=== PATIENT | female | born 1935 | race Caucasian/White ===

== ENCOUNTER 2018-06-20 14:58 | Observation (INO) ==
--- NOTE | 2018-06-20 15:13 | Emergency Department Note ---
Disposition Clinical Impression: Acute exacerbation of CHF (congestive heart failure), Pneumonia, Chest pain Disposition: Admitted As Inpatient Condition: Fair Time of Disposition: 18:10 Chest Pain HPI - General Chief Complaint: ED Chest Pain Stated Complaint: pain with inspiration Time Seen by Provider: 06/20/18 15:00 Source: patient, EMS Mode of arrival: EMS Limitations: no limitations Vital Signs Reviewed: Yes Nursing Notes Reviewed: Yes - History of Present Illness HPI Narrative: 83-year-old female presents today stating that she has had substernal chest pain that radiates to the left. She states the going on for a few hours. She states that she was short of breath before this happened she put her oxygen back on. She wears 2 L at 90 all the time and 2 L during the day most of the time. She states that she was short of breath began after having oxygen did help. Her pain was improved on the ambulance with aspirin and nitroglycerin. She states her pain is about 70% of what it was to start. She states that she had some nausea and no diarrhea no vomiting or headache neck pain or shoulder pain. She states she is not sweaty with this. She states 2 months ago she had the TAVR procedure done at [facility], which was successful, and a watchman which failed. SHe had a clean cath prior to that. - Related Data Home Medications Medication Instructions Recorded Confirmed Furosemide [Lasix] 20 mg PO DAILY 12/16/16 06/20/18 Metoprolol [Lopressor] 50 mg PO BID 12/16/16 06/20/18 Oxygen 2 l NS HS 12/16/16 06/20/18 Potassium Chloride [K-Tab ER] 20 meq PO DAILY 12/16/16 06/20/18 amLODIPine [Norvasc] 5 mg PO BID 12/16/16 06/20/18 Biotin 500 mg PO DAILY 01/08/18 06/20/18 Cyanocobalamin (B-12) [Vitamin B12] 1,000 mcg IM QMONTH 01/08/18 06/20/18 Cholecalciferol (D-3) [Vitamin D] 5,000 unit PO DAILY 01/25/18 06/20/18 Warfarin [Coumadin] 5 mg PO 2XW 03/25/18 06/20/18 Aspirin [Adult Aspirin] 81 mg PO DAILY 09/23/18 09/23/18 Doxazosin [Cardura] 4 mg PO HS 06/20/18 06/20/18 Warfarin [Coumadin] 2.5 mg PO 3XW 06/20/18 06/20/18 Allergies Allergy/AdvReac Type Severity Reaction Status Date / Time dabigatran etexilate Allergy Itching Verified 03/25/18 11:16 [From Pradaxa] morphine Allergy Itching Verified 03/25/18 11:16 Penicillins [PCN] Allergy Itching Verified 03/25/18 11:16 Sulfa (Sulfonamide Allergy Itching Verified 03/25/18 11:16 Antibiotics) fentanyl AdvReac See Verified 03/25/18 11:16 Comments midazolam [From Versed] AdvReac See Verified 03/25/18 11:16 Comments Review of Systems: All other systems are negative except as noted/marked Chart generated with voice recognition software Nursing notes reviewed Old records reviewed Chest Pain PMH - Past Medical History Medical history: Reports: arthritis, atrial fibrillation, diabetes, hyperlipidemia, hypertension, myocardial infarction Surgical history: Reports: appendectomy, , hysterectomy, knee replacement, orthopedic, other Psychiatric history: Reports: no psych history - Social History Smoking Status: Never smoker Alcohol use: Reports: none Drug use: Reports: none Physical Exam General: NAD, VSS Head: normocephalic, atraumatic Eyes: EOMI, PERRLA mouth: moist mucous membranes Neck: NO CLA, Supple Chest wall: normal rise, no crepitus, no deformity noted Lungs: moving air well, no distress Heart: RRR, no murmur Abd: soft, nontender, BS normal : deferred MSK: strength equal in all four extremities Ext: moves all four extremities, no obvious deformities Skin: cap refill normal, warm, dry neuro : CN2-12 grossly intact, A&Ox3 Psych: normal affect, not anxious Course Vital Signs Temperature 98.2 F 06/20/18 15:01 Pulse Rate 74 06/20/18 15:01 Respiratory Rate 18 06/20/18 15:01 Blood Pressure 141/58 06/20/18 15:01 O2 Sat by Pulse Oximetry 93 06/20/18 15:01 Temperature 98.2 F 06/20/18 15:01 Pulse Rate 75 06/20/18 17:46 Respiratory Rate 18 06/20/18 17:46 Blood Pressure 131/80 06/20/18 17:46 O2 Sat by Pulse Oximetry 96 06/20/18 17:46 Oxygen Delivery Oxygen Delivery Nasal Cannula Chest Pain - [facility] Narrative Medical decision making narrative: Spoke with Patient's transport conductor at [facility] [place], agrees likely not cardiac, feels patient could be monitored here for chf/pna and could always be transferred if not improving. 83-year-old female who presents today with left-sided and substernal chest pain. States that couple months ago she had some cardiac procedures done. She was concerned that she might be having heart problems secondary to those. Her legs have been swollen according to her on reexamination they do not appear swollen at this time however she states it was swollen at home. She denies any fevers is not having any cough she is now brought anything up. She does not feel nauseated. She states she just feels that she has this worsening chest pain. Her chest pain did improve with some nitroglycerin we did placed some paste on her. She will completely resolved chest pain but states that it hurt more with breathing than anything. Patient was feeling much better. I did call up to [facility] talk to a transport conductor who did not feel this is cardiac as she just had a normal catheter just prior to her cardiac procedures. We discussed keeping her here to rule out CHF versus pneumonia and started her on antibiotics for the pneumonia and some extra Lasix for her CHF. Dr Menon accepted patient for admission. Orders placed. Patient was doing well but then had increasing chest pain. Given her recent cardiac procedures I did want to completely rule out dissection and sent her over for a CT a. Her blood pressure has been normal. Has been normal during this time. Patient is allergic to opiates we discussed what works versus typically Tylenol helps and she would like to try some of that. Currently awaiting CTA results before sending patient for admission. Patient cta negative for dissection/aneurysm. Passed along to set staff fitter abnl ct results. Pt comfortable and improved pain with tylenol, additional nitro, and transferred to be admitted - Medical Records Medical records reviewed: Yes I reviewed the patient's medical records. - Lab Data Lab results reviewed: Yes I reviewed the patient's lab results. Result diagrams: 06/20/18 15:25 06/20/18 15:25 Lab Results 06/20/18 06/20/18 06/20/18 Range/Units 15:25 15:25 15:25 WBC 11.2 H (4.3-11.1) K/mcL RBC 3.38 L (3.82-4.97) M/mcL Hgb 10.2 L (11.5-15.4) g/dL Hct 33.4 L (35.3-44.9) % MCV 98.8 (83.0-100.0) fL MCH 30.2 (28.0-33.3) pg MCHC 30.5 L (31.6-35.5) g/dL RDW 14.6 H (11.5-14.5) % Plt Count 306 (140-400) K/mcL MPV 9.6 (9.4-12.4) fL Immature Gran % 0.4 (0-4) % Seg Neutrophils % 80.4 % Lymphocytes % 10.8 % Monocytes % 7.3 % Eosinophils % 0.8 % Basophils % 0.3 % Neutrophils # 9.0 H (1.6-8.9) K/mcL Lymphocytes # 1.2 (0.6-4.6) K/mcL Monocytes # 0.8 (0.0-1.3) K/mcL Eosinophils # 0.1 (0.0-0.6) K/mcL Basophils # 0.0 (0.0-0.2) K/mcL PT 24.3 H (9.4-12.1) Seconds INR 2.2 APTT 41.4 H (26.0-36.0) Seconds Sodium 141 (136-145) mEq/L Potassium 4.8 (3.5-5.1) mEq/L Chloride 102 (98-107) mEq/L Carbon Dioxide 31 H (23-29) mEq/L BUN 21 (8-23) mg/dL Creatinine 1.07 (0.60-1.20) mg/dL Est GFR ( Amer) 60 (> 60) Est GFR (Non-Af Amer) 49 L (> 60) BUN/Creatinine Ratio 20 (6-26) Glucose 165 H (70-105) mg/dL Calculated Osmolality 299 (280-300) Calcium 9.7 (8.6-10.3) mg/dL Magnesium (1.6-2.6) mg/dL Troponin I < 0.03 (< 0.04) ng/mL B-Natriuretic Peptide (Less than 100) pg/mL 06/20/18 06/20/18 Range/Units 15:25 15:25 WBC (4.3-11.1) K/mcL RBC (3.82-4.97) M/mcL Hgb (11.5-15.4) g/dL Hct (35.3-44.9) % MCV (83.0-100.0) fL MCH (28.0-33.3) pg MCHC (31.6-35.5) g/dL RDW (11.5-14.5) % Plt Count (140-400) K/mcL MPV (9.4-12.4) fL Immature Gran % (0-4) % Seg Neutrophils % % Lymphocytes % % Monocytes % % Eosinophils % % Basophils % % Neutrophils # (1.6-8.9) K/mcL Lymphocytes # (0.6-4.6) K/mcL Monocytes # (0.0-1.3) K/mcL Eosinophils # (0.0-0.6) K/mcL Basophils # (0.0-0.2) K/mcL PT (9.4-12.1) Seconds INR APTT (26.0-36.0) Seconds Sodium (136-145) mEq/L Potassium (3.5-5.1) mEq/L Chloride (98-107) mEq/L Carbon Dioxide (23-29) mEq/L BUN (8-23) mg/dL Creatinine (0.60-1.20) mg/dL Est GFR ( Amer) (> 60) Est GFR (Non-Af Amer) (> 60) BUN/Creatinine Ratio (6-26) Glucose (70-105) mg/dL Calculated Osmolality (280-300) Calcium (8.6-10.3) mg/dL Magnesium 1.9 (1.6-2.6) mg/dL Troponin I (< 0.04) ng/mL B-Natriuretic Peptide 471 H (Less than 100) pg/mL - Radiology Data Radiology results reviewed: Yes I reviewed the patient's radiology results. XAMINATION: SINGLE XRAY VIEW OF THE CHEST 06/20/2018 3:34 pm COMPARISON: None. HISTORY: ORDERING SYSTEM PROVIDED HISTORY: chest pain Acute chest pain FINDINGS: The heart is enlarged. Evidence of aortic valve surgery. Mild pulmonary vascular congestion centrally. Small left pleural effusion. Airspace changes in the left lower lung zone. No skeletal findings. XR/XR chest 1V portable IMPRESSION: CHF and suspected asymmetric pulmonary edema in the left lower chest. D/ / Alexandre Dupont MD / Alexandre Dupont MD Interpreting Provider: Alexandre Dupont MD INATION: CTA OF THE CHEST; CTA OF THE ABDOMEN AND PELVIS WITH CONTRAST 06/20/2018 5:26 pm; 06/20/2018 5:22 pm: TECHNIQUE: CTA of the chest was performed after the administration of intravenous contrast. Multiplanar reformatted images are provided for review. MIP images are provided for review. Dose modulation, iterative reconstruction, and/or weight based adjustment of the mA/kV was utilized to reduce the radiation dose to as low as reasonably achievable.; CTA of the abdomen and pelvis was performed with the administration of intravenous contrast. Multiplanar reformatted images are provided for review. MIP images are provided for review. Dose modulation, iterative reconstruction, and/or weight based adjustment of the mA/kV was utilized to reduce the radiation dose to as low as reasonably achievable. COMPARISON: None. HISTORY: ORDERING SYSTEM PROVIDED HISTORY: chest pain 70 ml of ISOVYE 370 ; ORDERING SYSTEM PROVIDED HISTORY: pain r/o dissection 70 ml of ISOVYE 370 FINDINGS: CTA CHEST: A stent is present within the ascending thoracic aorta. No dissection of the ascending thoracic aorta or the aortic arch is identified. However evaluation of the remaining segments of the aorta are limited due to poor contrast enhancement. There are extensive vascular calcifications. There is mild cardiomegaly. There is partial atelectasis of the left lower lobe with a trace left pleural effusion. CTA ABDOMEN: Calcified granulomas are present within the spleen. The liver, gallbladder, and pancreas are grossly within normal limits. A 3 cm duodenal diverticulum is present. No adrenal masses are identified. There is a horseshoe kidney with an indeterminate hypoattenuating lesion within the right kidney measuring 2.4 cm in diameter. There is diverticulosis coli without evidence of diverticulitis. There is no small bowel obstruction or free air or free fluid. The appendix is not identified. There is no retroperitoneal bleed. No pathologically enlarged lymph nodes are detected. There is skin thickening with subcutaneous stranding of fat and edema along the anterior abdominal wall possibly reflecting cellulitis. There are degenerative changes of the spine. CTA PELVIS: As above. CT/CT angio abdomen pelvis IMPRESSION: Inconclusive evaluation for dissection due to poor contrast enhancement. No aneurysm identified. Partial atelectasis of the left lower lobe with a trace left pleural effusion. Probable cellulitis along the low anterior abdominal wall. Indeterminate hypoattenuating lesion within the horseshoe kidney, probably a cyst. Diverticulosis coli without evidence of diverticulitis. D/ / Khoi Price MD / Khoi Price MD Interpreting Provider: Khoi Price MD - EKG Data EKG attestation: Yes I reviewed and interpreted this EKG. EKG results narrative: EKG interpreted by myself as an A. fib rate of 81 QTC of [address] elevation Heart Score - Score History: Moderately Suspicious EKG: Normal Age: Greater than 65 Risk Factors: 1-2 risk factors Troponin: Less than normal limit HEART Score Total: 4
[2018-06-20] MEDS: Nitroglycerin 0.4 MG TAB.SUBL SL ONE ×2 (15:25→15:30)
[2018-06-20 15:31] LABS: Basophils % 0.3 %; Eosinophils # 0.1 K/mcL (0.0-0.6); Eosinophils % 0.8 %; Hematocrit 33.4 % (35.3-44.9); Hemoglobin 10.2 g/dL (11.5-15.4); Immature Granulocytes % 0.4 % (0-4); Lymphocytes # 1.2 K/mcL (0.6-4.6); Lymphocytes % 10.8 %; Mean Corpuscular HGB Conc 30.5 g/dL (31.6-35.5); Mean Corpuscular Hemoglobin 30.2 pg (28.0-33.3); Mean Corpuscular Volume 98.8 fL (83.0-100.0); Mean Platelet Volume 9.6 fL (9.4-12.4); Monocytes # 0.8 K/mcL (0.0-1.3); Monocytes % 7.3 %; Platelet Count 306 K/mcL (140-400); Red Blood Count 3.38 M/mcL (3.82-4.97); Red Cell Distribution Width 14.6 % (11.5-14.5); Segmented Neutrophils % 80.4 %
[2018-06-20 15:39] LABS: INR 2.2; Prothrombin Time 24.3 Seconds (9.4-12.1)
[2018-06-20 15:41] LABS: Activated Partial Thrombo Time 41.4 Seconds (26.0-36.0)
[2018-06-20] MEDS ORDERED: Nitroglycerin 1 INCH/GM PACKET TP ONE (15:43)
[2018-06-20 15:50] LABS: BUN/Creatinine Ratio 20 (6-26); Blood Urea Nitrogen 21 mg/dL (8-23); Calcium 9.7 mg/dL (8.6-10.3); Carbon Dioxide 31 mEq/L (23-29); Chloride 102 mEq/L (98-107); Glucose 165 mg/dL (70-105); Osmolality,Calculated 299 (280-300); Potassium 4.8 mEq/L (3.5-5.1); Sodium 141 mEq/L (136-145); eGFR For Non-African Americans 49 (> 60)
[2018-06-20 15:52] LABS: Troponin I < 0.03 ng/mL (< 0.04)
[2018-06-20] MEDS ORDERED: Doxycycline 100 MG in 0.9 % Sodium Chloride Mini Bag 100 ML IVPB ONE (16:22)
[2018-06-20] MEDS ORDERED: Furosemide 20 MG/2 ML VIAL IVP ONE (16:22)
[2018-06-20] MEDS ORDERED: ISOVUE-370 100 ML INFUS..BTL IV ONE ×3 (16:46→18:17)
[2018-06-20] MEDS ORDERED: *HR* HYDROcodone/Acet 5/325 mg TABLET PO PRN (18:17)
[2018-06-20] MEDS ORDERED: Naloxone 0.4 MG/ML INJ IVP PRN (18:17)
[2018-06-20] MEDS ORDERED: Isovue-370 500 ML INFUS..BTL IV ONE (18:17)
[2018-06-20] MEDS ORDERED: Acetaminophen 325 MG TABLET PO PRN (18:17)
[2018-06-20] MEDS ORDERED: Cyanocobalamin (B-12) 1,000 MCG/ML VIAL IM SCH (18:17)
[2018-06-20] MEDS ORDERED: *HR* Warfarin 5 MG TABLET PO SCH ×2 (19:00→21:30)
[2018-06-20] MEDS ORDERED: NON-FORMULARY MEDICATION 1 EACH EACH (Oxygen [Oxygen] 2 L) NS SCH (21:00)
[2018-06-20] MEDS: amLODIPine 5 MG TABLET PO SCH (21:34)
[2018-06-20] MEDS: Furosemide 20 MG TABLET PO SCH (21:34)
[2018-06-21 07:38] LABS: Basophils % 0.3 %; Eosinophils # 0.1 K/mcL (0.0-0.6); Eosinophils % 0.5 %; Hematocrit 30.4 % (35.3-44.9); Hemoglobin 9.4 g/dL (11.5-15.4); Immature Granulocytes % 0.3 % (0-4); Lymphocytes # 1.6 K/mcL (0.6-4.6); Lymphocytes % 14.2 %; Mean Corpuscular HGB Conc 30.9 g/dL (31.6-35.5); Mean Corpuscular Hemoglobin 29.9 pg (28.0-33.3); Mean Corpuscular Volume 96.8 fL (83.0-100.0); Mean Platelet Volume 9.6 fL (9.4-12.4); Monocytes # 1.3 K/mcL (0.0-1.3); Monocytes % 12.2 %; Platelet Count 284 K/mcL (140-400); Red Blood Count 3.14 M/mcL (3.82-4.97); Red Cell Distribution Width 14.8 % (11.5-14.5); Segmented Neutrophils % 72.5 %
[2018-06-21] MEDS: Furosemide 20 MG TABLET PO SCH (08:00)
[2018-06-21] MEDS: amLODIPine 5 MG TABLET PO SCH (08:03)
[2018-06-21 08:29] LABS: Calcium 9.5 mg/dL (8.6-10.3)
[2018-06-21] MEDS ORDERED: *HR* Warfarin 2.5 MG TABLET PO SCH (09:00)
[2018-06-21] MEDS ORDERED: Aspirin Enteric Coated 81 MG Tablet PO SCH (09:00)
[2018-06-21] MEDS ORDERED: BIOTIN 500 MG PO SCH (09:00)
[2018-06-21] MEDS ORDERED: Cholecalciferol (D-3) 1,000 UNIT TABLET PO SCH (09:00)
[2018-06-21 09:51] VITALS: BP 112/54
--- NOTE | 2018-06-21 11:45 | Internal Med History&Physical ---
Date of Encounter: 06/21/18 Time of Encounter: 11:00 Assessment and Plan (1) Chest pain Current visit: Yes Status: Acute Doubt myocardial ischemia from history and physical. Repeat cardiac enzymes were ordered through emergency room. Qualifiers: Chest pain type: precordial pain Qualified Code(s): R07.2 - Precordial pain (2) CKD (chronic kidney disease) stage 3, GFR 30-59 ml/min Current visit: Yes Status: Chronic As per division head. (3) Anemia Current visit: No Status: Chronic Hemoglobin stable compared to previous values Qualifiers: Anemia type: other cause Other causes of anemia: other cause, not classified Qualified Code(s): D64.89 - Other specified anemias (4) HTN (hypertension) Current visit: No Status: Chronic Continue home regimen and monitor blood pressures. Qualifiers: Hypertension type: essential hypertension Qualified Code(s): I10 - Essential (primary) hypertension (5) Aortic stenosis Current visit: No Status: Acute Status post aortic valve replacement March 2018. Qualifiers: Cardiac valve disease etiology: etiology unspecified Qualified Code(s): I35.0 - Nonrheumatic aortic (valve) stenosis (6) Afib Current visit: No Status: Chronic Continue Coumadin. Qualifiers: Atrial fibrillation type: paroxysmal Qualified Code(s): I48.0 - Paroxysmal atrial fibrillation (7) Diastolic heart failure Current visit: Yes Status: Chronic Continue Lasix and Lopressor. Qualifiers: Heart failure chronicity: chronic Qualified Code(s): I50.32 - Chronic diastolic (congestive) heart failure Internal Medicine - H&P: HPI Chief complaint: Chest discomfort Admitted From: Emergency Dept Plans for Post Hospital Care: Home History of present illness: Ms. Miller is a 83 year old female who came to emergency room stating she had rapid onset of discomfort that she describes as a tightness/heaviness in her chest associated with dyspnea approximately noon time. She checked her blood pressure and found systolic reading of 108 mmHg which was significantly decreased from 148 mmHg on a check 2 hours previously. She called her PCP who recommended decreasing the dose of some blood pressure medication. When she did not improve she decided to come to emergency room for evaluation. She was admitted to [facility] for ongoing care needs. She denies previous similar episodes of chest discomfort. She reports her systolic blood pressure is typically 130 mmHg or higher. She reports a dry cough has been present for approximately 24 hours but is uncertain if the cough preceded the onset of chest pain. Her cardiovascular history is significant otherwise for hypertension and tissue aortic valve replacement March 2018 at [facility]. She had a watchman device placed for CVA prophylaxis since she has chronic atrial fibrillation since 2008. She thinks she had a heart attack 2008. No stents or bypass surgery has been done. She reports a heart catheter done prior to aortic valve replacement showed no stenoses requiring intervention. She has been diagnosed with heart failure presumably diastolic since THU January 2018 showed LVEF of 60-65%. She denies DVT or pulmonary embolus. She states her chest pain is significantly improved at the present time and she feels stable for discharge home. Past Med Surg Social Fam HX - Past Medical History Medical history: arthritis, atrial fibrillation, diabetes, hyperlipidemia, hypertension, myocardial infarction, other Additional medical history: Horse shoe shaped Kidneys, Stage 3 kidney disease, Sleep apnea with home oxygen at 2 LPM, has CPAP but not using x1 year. Psychiatric history: no psych history - Past Surgical History Surgical History: appendectomy, , hysterectomy, knee replacement, orthopedic, other Additional surgical history: Aortic valve replaced March [address] [facility] in [place]. Placed a watchman device to prevent blood clots, but one month post op they checked it and it is not working. Returns in September. - Social History Smoking Status: Never smoker Smokeless Tobacco Status: No Alcohol use: none Drug use: none Internal Medicine - H&P: Meds Furosemide [Lasix] 20 mg PO DAILY 12/16/16 [History] Metoprolol [Lopressor] 50 mg PO BID 12/16/16 [History] Oxygen 2 l NS HS 12/16/16 [History] Potassium Chloride [K-Tab ER] 20 meq PO DAILY 12/16/16 [History] amLODIPine [Norvasc] 5 mg PO BID 12/16/16 [History] Biotin 500 mg PO DAILY 01/08/18 [History] Cyanocobalamin (B-12) [Vitamin B12] 1,000 mcg IM QMONTH 01/08/18 [History] Cholecalciferol (D-3) [Vitamin D] 5,000 unit PO DAILY 01/25/18 [History] Warfarin [Coumadin] 5 mg PO DAILY 03/25/18 [History] Aspirin [Adult Aspirin] 81 mg PO DAILY 06/20/18 [History] Doxazosin [Cardura] 4 mg PO HS 06/20/18 [History] Warfarin [Coumadin] 2.5 mg PO QWEEK 06/20/18 [History] 3 Allergy/AdvReac Type Severity Reaction Status Date / Time dabigatran etexilate Allergy Itching Verified 03/25/18 11:16 [From Pradaxa] morphine Allergy Itching Verified 03/25/18 11:16 Penicillins [PCN] Allergy Itching Verified 03/25/18 11:16 Sulfa (Sulfonamide Allergy Itching Verified 03/25/18 11:16 Antibiotics) fentanyl AdvReac See Verified 03/25/18 11:16 Comments midazolam [From Versed] AdvReac See Verified 03/25/18 11:16 Comments All Systems PM: A 10-system review of systems was performed and is negative for pertinent findings except as documented above in the HPI. Review of systems: Gen.: She states her weight has increased a few pounds since the aortic valve replacement surgery in March but can not quantitate weight gain Cardiovascular: As per history of present illness Respiratory: She is a lifelong nonsmoker and denies chronic lung disease. She has DEDRICK and uses oxygen at bedtime and when necessary during the daytime. GI: She denies disorders of her liver gallbladder or exocrine pancreas : She has chronic kidney disease stage III and follows with a [place] division head. 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 She denies other kidney or bladder disorders. Neurologic: She denies large distribution strokes or seizures. Endocrine: She was diagnosed with DM 2 approximately 2002. She denies thyroid disease or hyperlipidemia Hematology/oncology: She has anemia with chronic kidney disease. She denies internal malignancies. Psychiatric: She denies anxiety depression or other mental health issues. [place] skeletal: She has had bilateral total knee replacements. She had right wrist fracture requiring surgical repair 1996. She denies other bone joint or muscle disorders. - Constitutional Vitals: Temp Pulse Resp BP Pulse Ox 98.3 F 86 19 112/54 94 06/21/18 09:47 06/21/18 09:47 06/21/18 09:47 06/21/18 09:47 06/21/18 09:47 Exam: Gen.: She is a well-developed obese female sitting in a chair who appears in no acute distress HEENT: Head is atraumatic and normocephalic. Eyes: EOMI. There is no scleral icterus. Mouth: Mucosa is moist. Neck: Supple and nontender. There is no thyromegaly or adenopathy noted. Heart: Irregularly irregular without murmurs or gallops Chest: She has mild discomfort in her left chest wall to compression but states "that is not the pain" she felt yesterday. Lungs: No wheezes or crackles are heard. Abdomen: Soft and nontender. No masses or guarding are noted. Extremities: She has no pitting edema of her lower legs. She has woody edema with chronic venous stasis pigmentation changes of her lower legs. She has multiple keratoses on her lower legs. Dorsalis pedis and posterior tibial pulses are trace palpable bilaterally. She has DJD changes of her hands. Neurologic: Mental status: She is talkative and a good historian. Cranial nerves: Smile is symmetric. Forehead reveals bilaterally. Tongue protrudes midline. EOMI. Motor: There is no pronator drift. Cerebellar: Finger to nose is intact bilaterally. Skin: Warm and dry Internal Med - H&P Results - Labs CBC & Chem 7: 06/21/18 07:00 06/21/18 07:00 Labs: Short CBC 06/21/18 Range/Units 07:00 WBC 11.0 (4.3-11.1) K/mcL Hgb 9.4 L (11.5-15.4) g/dL Hct 30.4 L (35.3-44.9) % Plt Count 284 (140-400) K/mcL Neutrophils # 8.0 (1.6-8.9) K/mcL BMP 06/21/18 07:00 Sodium 140 Potassium 4.0 Chloride 101 Carbon Dioxide 33 H BUN 22 Creatinine 1.16 Glucose 138 H Calcium 9.5 Cardiac Enzymes 06/20/18 06/21/18 06/21/18 Range/Units 19:04 01:20 07:00 Troponin I < 0.03 < 0.03 < 0.03 (< 0.04) ng/mL - Impressions ITS Impressions Chest CTA 06/20/18 16:46 IMPRESSION: Inconclusive evaluation for dissection due to poor contrast enhancement. No aneurysm identified. Partial atelectasis of the left lower lobe with a trace left pleural effusion. Probable cellulitis along the low anterior abdominal wall. Indeterminate hypoattenuating lesion within the horseshoe kidney, probably a cyst. Diverticulosis coli without evidence of diverticulitis. D/ / Khoi Price MD / Khoi Price MD Interpreting Provider: Khoi Price MD Abdomen/Pelvis CTA 06/20/18 16:48
--- NOTE | 2018-06-21 11:58 | Discharge Summary ---
Date of Encounter: 06/21/18 Time of Encounter: 11:00 - Discharge Diagnosis (1) Chest pain Priority: Primary Status: Acute Qualifiers: Chest pain type: precordial pain Qualified Code(s): R07.2 - Precordial pain (2) CKD (chronic kidney disease) stage 3, GFR 30-59 ml/min Priority: Secondary Status: Chronic (3) Anemia Priority: Secondary Status: Chronic Qualifiers: Anemia type: other cause Other causes of anemia: other cause, not classified Qualified Code(s): D64.89 - Other specified anemias (4) HTN (hypertension) Priority: Secondary Status: Chronic Qualifiers: Hypertension type: essential hypertension Qualified Code(s): I10 - Essential (primary) hypertension (5) Aortic stenosis Priority: Secondary Status: Chronic Qualifiers: Cardiac valve disease etiology: etiology unspecified Qualified Code(s): I35.0 - Nonrheumatic aortic (valve) stenosis (6) Afib Priority: Secondary Status: Chronic Qualifiers: Atrial fibrillation type: paroxysmal Qualified Code(s): I48.0 - Paroxysmal atrial fibrillation (7) Diastolic heart failure Priority: Secondary Status: Chronic Qualifiers: Heart failure chronicity: chronic Qualified Code(s): I50.32 - Chronic diastolic (congestive) heart failure Hospital course: Ms. Miller is a 83 year old female who came to emergency room stating she had rapid onset of discomfort that she describes as a tightness/heaviness in her chest associated with dyspnea approximately noon time. She checked her blood pressure and found systolic reading of 108 mmHg which was significantly decreased from 148 mmHg on a check 2 hours previously. She called her PCP who recommended decreasing the dose of some blood pressure medication. When she did not improve she decided to come to emergency room for evaluation. She was admitted to [facility] for ongoing care needs. Initial orders were written by the emergency room physician. I saw her on June 21 and performed a history physical and discharge. Repeat cardiac enzymes showed no evidence of myocardial damage. When I saw her I did not feel the pain was from myocardial ischemic origin. Etiology of the pain was not determined with certainty. She felt significantly improved at the time I saw her and wished to be discharged home which I felt was reasonable. 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 She will monitor her blood pressure daily and adjust medications as needed to avoid hypotension. - Time Spent with Patient Total time spent providing and/or coordinating discharge services: - Discharge Medications Home Medications: Furosemide [Lasix] 20 mg PO DAILY 12/16/16 [History] Metoprolol [Lopressor] 50 mg PO BID 12/16/16 [History] Oxygen 2 l NS HS 12/16/16 [History] Potassium Chloride [K-Tab ER] 20 meq PO DAILY 12/16/16 [History] amLODIPine [Norvasc] 5 mg PO BID 12/16/16 [History] Biotin 500 mg PO DAILY 01/08/18 [History] Cyanocobalamin (B-12) [Vitamin B12] 1,000 mcg IM QMONTH 01/08/18 [History] Cholecalciferol (D-3) [Vitamin D] 5,000 unit PO DAILY 01/25/18 [History] Warfarin [Coumadin] 5 mg PO DAILY 03/25/18 [History] Aspirin [Adult Aspirin] 81 mg PO DAILY 06/20/18 [History] Doxazosin [Cardura] 4 mg PO HS 06/20/18 [History] Warfarin [Coumadin] 2.5 mg PO QWEEK 06/20/18 [History] Allergies/Adverse Reactions: 3 Allergy/AdvReac Type Severity Reaction Status Date / Time dabigatran etexilate Allergy Itching Verified 03/25/18 11:16 [From Pradaxa] morphine Allergy Itching Verified 03/25/18 11:16 Penicillins [PCN] Allergy Itching Verified 03/25/18 11:16 Sulfa (Sulfonamide Allergy Itching Verified 03/25/18 11:16 Antibiotics) fentanyl AdvReac See Verified 03/25/18 11:16 Comments midazolam [From Versed] AdvReac See Verified 03/25/18 11:16 Comments Date of admission: 06/20/18 16:34 Primary care physician: Adam Crawford MD - Constitutional Vitals: Temp Pulse Resp BP Pulse Ox 98.3 F 86 19 112/54 94 06/21/18 09:47 06/21/18 09:47 06/21/18 09:47 06/21/18 09:47 06/21/18 09:47 - Patient Status Disposition: Home, Self-Care Condition: Fair - Discharge Instructions Follow Up With: Adam Crawford MD [Primary Care Provider] - 1 week - Diet and Activity Activity: resume usual activities as tolerated Diet: diabetic diet
--- NOTE | 2018-06-21 17:16 | Electrocardiograph Report ---
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
[2018-06-23] MEDS ORDERED: *HR* Warfarin 5 MG TABLET PO SCH (18:00)
== END 2018-06-21 13:15 | disposition home or self-care (01) ==
LOC: EMEROOPIK 14:58 → INPPIK 14:58
PROVIDERS: ADMIT Internal Medicine; ATTEND Internal Medicine

== ENCOUNTER 2019-09-21 16:45 | Inpatient (IN) ==
[2019-09-21] MEDS ORDERED: Nystatin POWDER 30 GM BOTTLE TP SCH (20:00)
[2019-09-21] MEDS ORDERED: Cyanocobalamin (B-12) 1,000 MCG/ML VIAL IM SCH (20:00)
[2019-09-21] MEDS: Furosemide 20 MG TABLET PO SCH (21:13)
[2019-09-21] MEDS: amLODIPine 5 MG TABLET PO SCH (21:17)
[2019-09-21] MEDS: *HR* Rivaroxaban 15 MG TABLET PO SCH (21:18)
[2019-09-22 06:07] LABS: Basophils # 0.1 K/mcL (0.0-0.2); Basophils % 0.5 %; Eosinophils # 0.2 K/mcL (0.0-0.6); Eosinophils % 1.7 %; Hematocrit 35.6 % (35.3-44.9); Hemoglobin 11.7 g/dL (11.5-15.4); Immature Granulocytes % 0.9 % (0-4); Lymphocytes # 1.8 K/mcL (0.6-4.6); Lymphocytes % 18.3 %; Mean Corpuscular HGB Conc 32.9 g/dL (31.6-35.5); Mean Corpuscular Hemoglobin 31.7 pg (28.0-33.3); Mean Corpuscular Volume 96.5 fL (83.0-100.0); Monocytes % 10.5 %; Neutrophils # 6.6 K/mcL (1.6-8.9); Platelet Count 266 K/mcL (140-400); Red Blood Count 3.69 M/mcL (3.82-4.97); Red Cell Distribution Width 12.5 % (11.5-14.5); Segmented Neutrophils % 68.1 %; White Blood Count 9.7 K/mcL (4.3-11.1)
[2019-09-22 06:25] LABS: Calcium 9.6 mg/dL (8.6-10.3)
[2019-09-22] MEDS: amLODIPine 5 MG TABLET PO SCH ×2 (07:51→20:13)
[2019-09-22] MEDS: Cholecalciferol (D-3) 1,000 UNIT (25MCG) TABLET PO SCH (07:51)
[2019-09-22] MEDS: Acetaminophen 325 MG TABLET PO PRN ×2 (07:52→23:50)
[2019-09-22] MEDS: Aspirin Enteric Coated 81 MG Tablet PO SCH (07:52)
[2019-09-22] MEDS: Furosemide 20 MG TABLET PO SCH ×2 (07:52→16:24)
[2019-09-22] MEDS: *HR* Rivaroxaban 15 MG TABLET PO SCH ×2 (07:52→20:14)
[2019-09-22] MEDS: Clotrimazole 1% CRM 15 GM TUBE TP SCH (07:54)
[2019-09-22] MEDS: Clobetasol Propionate 0.05% 15 GM Cream Tube TP SCH (07:54)
[2019-09-22] MEDS: Triamcinolone Acet 0.1% CRM 15 GM TUBE TP SCH (07:54)
[2019-09-22] MEDS ORDERED: Cyanocobalamin (B-12) 1,000 MCG/ML VIAL IM SCH (09:00)
[2019-09-23] MEDS: Nystatin POWDER 30 GM BOTTLE TP SCH ×3 (01:58→21:19)
[2019-09-23] MEDS: Aspirin Enteric Coated 81 MG Tablet PO SCH (08:30)
[2019-09-23] MEDS: Furosemide 20 MG TABLET PO SCH ×2 (08:31→16:05)
[2019-09-23] MEDS: Clobetasol Propionate 0.05% 15 GM Cream Tube TP SCH (08:31)
[2019-09-23] MEDS: Clotrimazole 1% CRM 15 GM TUBE TP SCH (08:31)
[2019-09-23] MEDS: amLODIPine 5 MG TABLET PO SCH ×2 (08:31→21:18)
[2019-09-23] MEDS: Cholecalciferol (D-3) 1,000 UNIT (25MCG) TABLET PO SCH (08:31)
[2019-09-23] MEDS: Triamcinolone Acet 0.1% CRM 15 GM TUBE TP SCH (08:31)
[2019-09-23] MEDS: *HR* Rivaroxaban 15 MG TABLET PO SCH ×2 (08:31→21:18)
[2019-09-23] MEDS: Acetaminophen 325 MG TABLET PO PRN ×2 (13:09→21:18)
[2019-09-24] MEDS: Furosemide 20 MG TABLET PO SCH (09:22)
[2019-09-24] MEDS: *HR* Rivaroxaban 15 MG TABLET PO SCH ×2 (09:24→20:36)
[2019-09-24] MEDS: amLODIPine 5 MG TABLET PO SCH ×2 (09:25→20:37)
[2019-09-24] MEDS: Acetaminophen 325 MG TABLET PO PRN (09:25)
[2019-09-24] MEDS: Aspirin Enteric Coated 81 MG Tablet PO SCH (09:25)
[2019-09-24] MEDS: Cholecalciferol (D-3) 1,000 UNIT (25MCG) TABLET PO SCH (09:26)
[2019-09-24] MEDS: Triamcinolone Acet 0.1% CRM 15 GM TUBE TP SCH (09:26)
[2019-09-24] MEDS: Nystatin POWDER 30 GM BOTTLE TP SCH ×2 (09:27→20:37)
[2019-09-24] MEDS: Clobetasol Propionate 0.05% 15 GM Cream Tube TP SCH (09:29)
[2019-09-24] MEDS: Furosemide 40 MG TABLET PO SCH ×2 (09:33→17:40)
[2019-09-24] MEDS: Clotrimazole 1% CRM 15 GM TUBE TP SCH (09:36)
[2019-09-25] MEDS: Acetaminophen 325 MG TABLET PO PRN (01:33)
[2019-09-25] MEDS: Aspirin Enteric Coated 81 MG Tablet PO SCH (07:38)
[2019-09-25] MEDS: *HR* Rivaroxaban 15 MG TABLET PO SCH ×2 (07:38→20:57)
[2019-09-25] MEDS: Furosemide 40 MG TABLET PO SCH ×2 (07:38→16:24)
[2019-09-25] MEDS: Cholecalciferol (D-3) 1,000 UNIT (25MCG) TABLET PO SCH (07:38)
[2019-09-25] MEDS: amLODIPine 5 MG TABLET PO SCH ×2 (07:39→20:57)
[2019-09-25] MEDS: Triamcinolone Acet 0.1% CRM 15 GM TUBE TP SCH (07:39)
[2019-09-25] MEDS: Clotrimazole 1% CRM 15 GM TUBE TP SCH (07:39)
[2019-09-25] MEDS: Clobetasol Propionate 0.05% 15 GM Cream Tube TP SCH (07:39)
[2019-09-25] MEDS: Nystatin POWDER 30 GM BOTTLE TP SCH ×2 (07:40→20:58)
[2019-09-26] MEDS: Acetaminophen 325 MG TABLET PO PRN ×2 (02:40→09:02)
[2019-09-26 06:32] LABS: Hematocrit 34.1 % (35.3-44.9); Hemoglobin 11.2 g/dL (11.5-15.4); Mean Corpuscular HGB Conc 32.8 g/dL (31.6-35.5); Mean Corpuscular Hemoglobin 32.2 pg (28.0-33.3); Mean Platelet Volume 9.7 fL (9.4-12.4); Platelet Count 331 K/mcL (140-400); Red Blood Count 3.48 M/mcL (3.82-4.97); Red Cell Distribution Width 12.3 % (11.5-14.5); White Blood Count 8.6 K/mcL (4.3-11.1)
[2019-09-26 06:54] LABS: Calcium 9.6 mg/dL (8.6-10.3)
[2019-09-26] MEDS: Furosemide 40 MG TABLET PO SCH ×2 (08:56→16:47)
[2019-09-26] MEDS: Aspirin Enteric Coated 81 MG Tablet PO SCH (08:56)
[2019-09-26] MEDS: amLODIPine 5 MG TABLET PO SCH ×2 (08:56→20:08)
[2019-09-26] MEDS: Cholecalciferol (D-3) 1,000 UNIT (25MCG) TABLET PO SCH (08:56)
[2019-09-26] MEDS: *HR* Rivaroxaban 15 MG TABLET PO SCH ×2 (08:57→20:08)
[2019-09-26] MEDS: Nystatin POWDER 30 GM BOTTLE TP SCH ×2 (09:03→20:14)
[2019-09-26] MEDS: Triamcinolone Acet 0.1% CRM 15 GM TUBE TP SCH (09:03)
[2019-09-26] MEDS: Clotrimazole 1% CRM 15 GM TUBE TP SCH (09:03)
[2019-09-26] MEDS: Clobetasol Propionate 0.05% 15 GM Cream Tube TP SCH (09:03)
[2019-09-26] MEDS: Gabapentin 100 MG CAPSULE PO SCH ×2 (16:47→21:57)
[2019-09-27] MEDS: Cholecalciferol (D-3) 1,000 UNIT (25MCG) TABLET PO SCH (08:16)
[2019-09-27] MEDS: Clotrimazole 1% CRM 15 GM TUBE TP SCH (08:16)
[2019-09-27] MEDS: Triamcinolone Acet 0.1% CRM 15 GM TUBE TP SCH (08:16)
[2019-09-27] MEDS: *HR* Rivaroxaban 15 MG TABLET PO SCH ×2 (08:16→21:18)
[2019-09-27] MEDS: Gabapentin 100 MG CAPSULE PO SCH ×3 (08:16→21:18)
[2019-09-27] MEDS: Nystatin POWDER 30 GM BOTTLE TP SCH ×2 (08:16→21:18)
[2019-09-27] MEDS: amLODIPine 5 MG TABLET PO SCH ×2 (08:16→21:18)
[2019-09-27] MEDS: Aspirin Enteric Coated 81 MG Tablet PO SCH (08:16)
[2019-09-27] MEDS: Furosemide 40 MG TABLET PO SCH ×2 (08:16→15:49)
[2019-09-27] MEDS: Clobetasol Propionate 0.05% 15 GM Cream Tube TP SCH (08:18)
[2019-09-27] MEDS: Albuterol 2.5 MG/3 ML NEBULIZER IH PRN ×2 (16:03→21:24)
[2019-09-28 07:39] LABS: Hemoglobin 11.1 g/dL (11.5-15.4); Mean Corpuscular HGB Conc 31.7 g/dL (31.6-35.5); Mean Corpuscular Hemoglobin 31.3 pg (28.0-33.3); Mean Corpuscular Volume 98.6 fL (83.0-100.0); Mean Platelet Volume 9.4 fL (9.4-12.4); Platelet Count 363 K/mcL (140-400); Red Blood Count 3.55 M/mcL (3.82-4.97); Red Cell Distribution Width 12.2 % (11.5-14.5); White Blood Count 8.2 K/mcL (4.3-11.1)
[2019-09-28 07:58] LABS: Calcium 9.5 mg/dL (8.6-10.3)
[2019-09-28] MEDS: Aspirin Enteric Coated 81 MG Tablet PO SCH (09:08)
[2019-09-28] MEDS: amLODIPine 5 MG TABLET PO SCH ×2 (09:08→20:11)
[2019-09-28] MEDS: Gabapentin 100 MG CAPSULE PO SCH ×3 (09:08→20:12)
[2019-09-28] MEDS: Cholecalciferol (D-3) 1,000 UNIT (25MCG) TABLET PO SCH (09:08)
[2019-09-28] MEDS: Furosemide 40 MG TABLET PO SCH ×2 (09:08→17:16)
[2019-09-28] MEDS: *HR* Rivaroxaban 15 MG TABLET PO SCH ×2 (10:08→20:11)
[2019-09-28] MEDS: Acetaminophen 325 MG TABLET PO PRN (10:09)
[2019-09-28] MEDS: Triamcinolone Acet 0.1% CRM 15 GM TUBE TP SCH (10:10)
[2019-09-28] MEDS: Clobetasol Propionate 0.05% 15 GM Cream Tube TP SCH (10:10)
[2019-09-28] MEDS: Clotrimazole 1% CRM 15 GM TUBE TP SCH (10:10)
[2019-09-28] MEDS: Nystatin POWDER 30 GM BOTTLE TP SCH ×2 (10:11→20:12)
[2019-09-28] MEDS ORDERED: Colchicine 0.6 MG TABLET PO ONE ×2 (13:00→14:00)
[2019-09-28] MEDS: predniSONE 20 MG TABLET PO SCH (13:56)
[2019-09-29] MEDS ORDERED: Colchicine 0.6 MG TABLET PO ONE (02:00)
[2019-09-29] MEDS: Aspirin Enteric Coated 81 MG Tablet PO SCH (09:26)
[2019-09-29] MEDS: Furosemide 40 MG TABLET PO SCH ×2 (09:26→16:25)
[2019-09-29] MEDS: *HR* Rivaroxaban 15 MG TABLET PO SCH ×2 (09:26→21:00)
[2019-09-29] MEDS: Gabapentin 100 MG CAPSULE PO SCH ×3 (09:26→21:00)
[2019-09-29] MEDS: Cholecalciferol (D-3) 1,000 UNIT (25MCG) TABLET PO SCH (09:26)
[2019-09-29] MEDS: amLODIPine 5 MG TABLET PO SCH ×2 (09:26→21:00)
[2019-09-29] MEDS: predniSONE 20 MG TABLET PO SCH (09:26)
[2019-09-29] MEDS: Triamcinolone Acet 0.1% CRM 15 GM TUBE TP SCH (09:27)
[2019-09-29] MEDS: Nystatin POWDER 30 GM BOTTLE TP SCH ×2 (09:27→21:00)
[2019-09-29] MEDS: Clotrimazole 1% CRM 15 GM TUBE TP SCH (09:27)
[2019-09-29] MEDS: Clobetasol Propionate 0.05% 15 GM Cream Tube TP SCH (09:27)
[2019-09-29] MEDS: Colchicine 0.6 MG TABLET PO SCH (13:59)
[2019-09-29] MEDS: Acetaminophen 325 MG TABLET PO PRN (16:24)
[2019-09-30 08:25] VITALS: BP 137/59
[2019-09-30] MEDS: Triamcinolone Acet 0.1% CRM 15 GM TUBE TP SCH (09:21)
[2019-09-30] MEDS: Cholecalciferol (D-3) 1,000 UNIT (25MCG) TABLET PO SCH (09:22)
[2019-09-30] MEDS: Aspirin Enteric Coated 81 MG Tablet PO SCH (09:22)
[2019-09-30] MEDS: *HR* Rivaroxaban 15 MG TABLET PO SCH (09:23)
[2019-09-30] MEDS: predniSONE 20 MG TABLET PO SCH (09:23)
[2019-09-30] MEDS: amLODIPine 5 MG TABLET PO SCH (09:23)
[2019-09-30] MEDS: Gabapentin 100 MG CAPSULE PO SCH ×2 (09:23→15:51)
[2019-09-30] MEDS: Furosemide 40 MG TABLET PO SCH ×2 (09:23→15:51)
[2019-09-30] MEDS: Colchicine 0.6 MG TABLET PO SCH (09:23)
[2019-09-30] MEDS: Nystatin POWDER 30 GM BOTTLE TP SCH (09:24)
[2019-09-30] MEDS: Clotrimazole 1% CRM 15 GM TUBE TP SCH (09:25)
[2019-09-30] MEDS: Clobetasol Propionate 0.05% 15 GM Cream Tube TP SCH (09:26)
[2019-09-30] MEDS ORDERED: *HR* Rivaroxaban 15 MG TABLET PO SCH (16:00)
[2019-10-10] MEDS ORDERED: *HR* Rivaroxaban 10 MG TABLET PO SCH (09:00)
== END 2019-09-30 17:37 | disposition home health service (06) | DRG 176 ==
LOC: INPPIK 16:45
PROVIDERS: ADMIT Family Medicine; ATTEND Family Medicine

== ENCOUNTER 2021-03-05 17:12 | Inpatient (IN) ==
[2021-03-05] MEDS ORDERED: Insulin DETEMIR 100 UNIT/ML per UNIT SUBQ ONE (21:00)
[2021-03-05 21:08] LABS: INR 1.8; Prothrombin Time 20.2 Seconds (9.4-12.1)
[2021-03-05] MEDS ORDERED: *HR* Warfarin 2.5 MG TABLET PO SCH (21:30)
[2021-03-05] MEDS: Bumetanide 1 MG TABLET PO SCH (21:36)
[2021-03-05] MEDS: Ammonium Lactate 30 APPL/225 GM BOTTLE TP SCH (21:37)
[2021-03-05] MEDS: Cefuroxime PO 250 MG TABLET PO SCH (23:06)
[2021-03-05] MEDS ORDERED: Dextrose Gel 15 GM/37.5 ML TUBE PO PRN ×2 (23:07)
[2021-03-05] MEDS ORDERED: *HR* Dextrose 50 % in Water (Vial) 50 ML VIAL IVP PRN (23:07)
[2021-03-05] MEDS ORDERED: D5% in Water 1,000 ML IVC PRN (23:07)
[2021-03-05] MEDS: Acetaminophen 325 MG TABLET PO PRN (23:39)
[2021-03-06 05:24] LABS: Basophils % 0.6 %; Eosinophils # 0.1 K/mcL (0.0-0.6); Eosinophils % 1.8 %; Hematocrit 31.7 % (35.3-44.9); Lymphocytes % 27.3 %; Mean Corpuscular HGB Conc 31.5 g/dL (31.6-35.5); Mean Corpuscular Hemoglobin 32.1 pg (28.0-33.3); Mean Corpuscular Volume 101.6 fL (83.0-100.0); Mean Platelet Volume 10.2 fL (9.4-12.4); Monocytes # 0.9 K/mcL (0.0-1.3); Monocytes % 12.3 %; Neutrophils # 4.1 K/mcL (1.6-8.9); Platelet Count 381 K/mcL (140-400); Red Blood Count 3.12 M/mcL (3.82-4.97); Red Cell Distribution Width 14.9 % (11.5-14.5); White Blood Count 7.2 K/mcL (4.3-11.1)
[2021-03-06 05:31] LABS: INR 1.8; Prothrombin Time 20.1 Seconds (9.4-12.1)
[2021-03-06 05:34] LABS: Activated Partial Thrombo Time 33.6 Seconds (26.0-36.0)
[2021-03-06] MEDS ORDERED: Insulin LISPRO 300 UNITS/3 ML VIAL SUBQ SCH (07:30)
[2021-03-06] MEDS: Bumetanide 1 MG TABLET PO SCH ×2 (09:11→16:44)
[2021-03-06] MEDS: Insulin LISPRO 300 UNITS/3 ML VIAL SUBQ SCH ×3 (09:11→16:45)
[2021-03-06] MEDS: allopurinoL 100 MG TABLET PO SCH (09:12)
[2021-03-06] MEDS: Ammonium Lactate 30 APPL/225 GM BOTTLE TP SCH (09:12)
[2021-03-06] MEDS: calcitrioL 0.25 MCG CAPSULE PO SCH (09:12)
[2021-03-06] MEDS: *HR* Metformin 500 MG TABLET PO SCH ×2 (09:12→16:44)
[2021-03-06] MEDS: Cholecalciferol (D-3) 1,000 UNIT (25MCG) TABLET PO SCH (09:12)
[2021-03-06] MEDS: Cefuroxime PO 250 MG TABLET PO SCH ×2 (09:12→20:35)
[2021-03-06] MEDS ORDERED: Ammonium Lactate 30 APPL/225 GM BOTTLE TP PRN (16:54)
[2021-03-06] MEDS ORDERED: *HR* Warfarin 2.5 MG TABLET PO SCH (18:00)
[2021-03-06 18:39] LABS: Calcium 9.5 mg/dL (8.6-10.3); Potassium 4.2 mEq/L (3.5-5.1)
[2021-03-06] MEDS: Nystatin Cream 15 GM TUBE TP SCH (20:35)
[2021-03-06] MEDS: Insulin DETEMIR 100 UNIT/ML X5UNITS SUBQ SCH (20:36)
[2021-03-06] MEDS ORDERED: Insulin DETEMIR 100 UNIT/ML X5UNITS SUBQ SCH (21:00)
[2021-03-07] MEDS: Insulin LISPRO 300 UNITS/3 ML VIAL SUBQ SCH ×3 (07:50→16:48)
[2021-03-07] MEDS: calcitrioL 0.25 MCG CAPSULE PO SCH (07:53)
[2021-03-07] MEDS: Cholecalciferol (D-3) 1,000 UNIT (25MCG) TABLET PO SCH (07:53)
[2021-03-07] MEDS: Cefuroxime PO 250 MG TABLET PO SCH (07:54)
[2021-03-07] MEDS: Bumetanide 1 MG TABLET PO SCH ×2 (07:54→15:28)
[2021-03-07] MEDS: allopurinoL 100 MG TABLET PO SCH (07:54)
[2021-03-07] MEDS: *HR* Metformin 500 MG TABLET PO SCH ×2 (07:54→16:48)
[2021-03-07] MEDS: Nystatin Cream 15 GM TUBE TP SCH ×2 (07:55→21:27)
[2021-03-07] MEDS: Insulin DETEMIR 100 UNIT/ML X5UNITS SUBQ SCH ×2 (08:12→21:20)
[2021-03-07] MEDS: Acetaminophen 325 MG TABLET PO PRN (15:28)
[2021-03-07] MEDS ORDERED: Warfarin perPT PO PRN (15:53)
[2021-03-07] MEDS ORDERED: *HR* Warfarin 3 MG TABLET PO ONE (18:00)
[2021-03-08 07:18] LABS: INR 1.7; Prothrombin Time 19.9 Seconds (9.4-12.1)
[2021-03-08] MEDS: *HR* Metformin 500 MG TABLET PO SCH ×2 (09:10→16:33)
[2021-03-08] MEDS: Cholecalciferol (D-3) 1,000 UNIT (25MCG) TABLET PO SCH (09:10)
[2021-03-08] MEDS: calcitrioL 0.25 MCG CAPSULE PO SCH (09:10)
[2021-03-08] MEDS: Insulin LISPRO 300 UNITS/3 ML VIAL SUBQ SCH ×3 (09:11→16:12)
[2021-03-08] MEDS: allopurinoL 100 MG TABLET PO SCH (09:11)
[2021-03-08] MEDS: Insulin DETEMIR 100 UNIT/ML X5UNITS SUBQ SCH ×2 (09:11→20:18)
[2021-03-08] MEDS: Nystatin Cream 15 GM TUBE TP SCH ×2 (09:11→20:19)
[2021-03-08] MEDS: Bumetanide 1 MG TABLET PO SCH ×2 (09:11→14:49)
[2021-03-08] MEDS: Acetaminophen 325 MG TABLET PO PRN (10:22)
[2021-03-08] MEDS ORDERED: *HR* Warfarin 3 MG TABLET PO ONE (18:00)
[2021-03-09 07:34] LABS: INR 1.8; Prothrombin Time 20.2 Seconds (9.4-12.1)
[2021-03-09] MEDS: Insulin LISPRO 300 UNITS/3 ML VIAL SUBQ SCH ×3 (07:52→16:38)
[2021-03-09] MEDS: Cholecalciferol (D-3) 1,000 UNIT (25MCG) TABLET PO SCH (07:53)
[2021-03-09] MEDS: Bumetanide 1 MG TABLET PO SCH ×2 (07:53→16:55)
[2021-03-09] MEDS: calcitrioL 0.25 MCG CAPSULE PO SCH (07:53)
[2021-03-09] MEDS: *HR* Metformin 500 MG TABLET PO SCH ×2 (07:54→16:54)
[2021-03-09] MEDS: allopurinoL 100 MG TABLET PO SCH (07:54)
[2021-03-09] MEDS: Nystatin Cream 15 GM TUBE TP SCH ×2 (07:55→20:18)
[2021-03-09] MEDS: Insulin DETEMIR 100 UNIT/ML X5UNITS SUBQ SCH ×2 (08:12→20:18)
[2021-03-09] MEDS ORDERED: *HR* Warfarin 2 MG TABLET PO ONE (18:00)
[2021-03-10 05:51] VITALS: BP 141/64
[2021-03-10 06:41] LABS: INR 1.7; Prothrombin Time 19.3 Seconds (9.4-12.1)
[2021-03-10] MEDS: Insulin LISPRO 300 UNITS/3 ML VIAL SUBQ SCH (08:04)
[2021-03-10] MEDS: Insulin DETEMIR 100 UNIT/ML X5UNITS SUBQ SCH (09:02)
[2021-03-10] MEDS: calcitrioL 0.25 MCG CAPSULE PO SCH (09:05)
[2021-03-10] MEDS: allopurinoL 100 MG TABLET PO SCH (09:05)
[2021-03-10] MEDS: *HR* Metformin 500 MG TABLET PO SCH (09:05)
[2021-03-10] MEDS: Cholecalciferol (D-3) 1,000 UNIT (25MCG) TABLET PO SCH (09:05)
[2021-03-10] MEDS: Bumetanide 1 MG TABLET PO SCH (09:06)
[2021-03-10] MEDS: Nystatin Cream 15 GM TUBE TP SCH (09:07)
[2021-03-10] MEDS ORDERED: *HR* Warfarin 2 MG TABLET PO ONE (18:00)
== END 2021-03-10 11:45 | disposition home health service (06) | DRG 871 ==
LOC: INPPIK 20:15
PROVIDERS: ADMIT Family Medicine; ATTEND Family Medicine